=== PATIENT | male | born 1995 | race Caucasian/White ===

== ENCOUNTER → 2018-12-17 | Outpatient (CLI) | payer OTHER, SELFPAY ==
[2018-12-17 14:58] VITALS: BMI 21.4
[2018-12-17 17:50] LABS: Hemoglobin 14.8 g/dl (13.0-16.5); Mean Corp Hgb Conc 34.4 g/gl (32-36); Mean Platelet Vol. 9.9 fl (6.2-12.0); Platelet Count 250 K/mm3 (150-450); RBC Distribution Width CV 13.1 % (11.6-14.6); RBC Distribution Width SD 40.8 fl (35.1-43.9); Red Blood Count 4.94 M/mm3 (4.6-6.2); White Blood Count 5.9 K/mm3 (4.4-11.0)
[2018-12-17 17:58] LABS: Scan Indicated on CBC? Y/N NO
[2018-12-25 10:00] LABS: Calprotectin, Stool <16 ug/g (0-120)
== END | disposition home or self-care (01) ==
PROVIDERS: Family Provider Family Medicine; PCP Family Medicine; Referring Provider Family Medicine; Visit Provider Family Medicine
DX: K62.5 Hemorrhage of anus and rectum (principal)
CPT/HCPCS: 36415; 83993; 85027

== ENCOUNTER 2023-06-16 09:32 | Emergency (ER) | payer OTHER, SELFPAY ==
[2023-06-16 09:32] VITALS: BP 146/81; PULSE 62; RESP 16; TEMP 36.3; O2SAT 99; BMI 22.2
--- NOTE | 2023-06-16 10:09 | EX.ED.VIS.UR ---
HPI HPI - URI History of Present Illness Chief Complaint: Sore Throat Informant: patient Onset/Context/Timing Onset: Yesterday (Last night) Context: Sudden Onset Timing: Continuous Quality: Aching Location: Throat Worsened by: Swallowing Relieved by: - (Nothing) Associated Symptoms Associated Symptoms: Positive for Nasal Congestion and Nonproductive cough; Negative for Headache, Sinus Pressure, Myalgias, Nausea, Vomiting, Diarrhea, Shortness of Breath, Chest Pain, Hemoptysis or Productive Cough Narrative Narrative: Patient presents with sore throat that began last night. Patient states it began rather suddenly. Patient states it has been constant. Patient states he is having difficulty swallowing due to the pain. Patient denies any trouble breathing. Patient admits to some nasal congestion. Patient admits to a nonproductive cough. Patient admits to some subjective fevers. Patient denies any nausea or vomiting. Patient denies any chest pain or shortness of breath. Patient denies any headaches or sinus pressure. ROS ROS ED Constitutional Constitutional ED: Reports fever(s) and subjective; Denies chills Eyes Eyes: Denies blurry vision or change in vision ENT ENT ED: Reports sore throat; Denies rhinorrhea Cardiovascular Cardiovascular: Denies chest pain or palpitations Respiratory/Chest Respiratory/Chest: Reports cough; Denies dyspnea Gastrointestinal Gastrointestinal: Denies nausea or vomiting Genitourinary Genitourinary ED: Denies dysuria or hematuria Musculoskeletal Musculoskeletal: Denies back pain or neck pain Integumentary Denies abscess or rash Neurologic Neurologic: Denies headache(s) or weakness Allergic/Immunologic Allergic/Immunologic ED: Denies mouth swelling or urticaria PFSH PFSH Medical History Encounter for screening for COVID-19 Frequent headaches Rectal bleeding Home Medications NK 05/27/19 [History Last Taken Unknown] Allergy/AdvReac Type Severity Reaction Status Date / Time No Known Allergies Allergy Verified 06/16/23 09:32 Family History (Updated 05/27/19 @ 09:12 by Miriam Pierce) Grandfather Arthritis Bone Marrow cancer Skin cancer Grandmother Arthritis Colon cancer Diabetes Hypertension Osteoporosis Grandfather Colon cancer Diabetes CVA (cerebral vascular accident) Grandmother Hypertension Father High cholesterol Mother Hypertension Surgical History History of removal of Birthmark Hx of wisdom tooth extraction Social History Smoking Status: Never smoker alcohol intake: never substance use type: does not use caffeine: Yes what type of physical activity do you participate in: none EXAM Physical Exam Const Vital Signs: 06/16/23 09:32 06/16/23 10:48 Temperature 97.4 F L Temperature Source Temporal Pulse Rate 62 Respiratory Rate 16 16 Blood Pressure 146/81 H Blood Pressure Mean 102 Pulse Ox 99 Oxygen Delivery Method Room Air Positive well nourished and well developed General Appearance ED: well developed and NAD HEENT Reports moist mucous membranes normocephalic Throat: posterior oropharynx normal Neck supple, no meningeal signs and no JVD Neck Narrative: There is some mild pain with manipulation of the trachea. General: Negative for anterior neck swelling Resp normal respiratory effort and clear to auscultation bilaterally Cardio Rate: regular rate Rhythm: regular rhythm GI non-tender and non-distended Palpation: soft Neuro oriented x3, CN's II-XII intact bilaterally and no sensory deficits noted Sensorium / Orientation: alert Motor Exam: strength 5/5 throughout Psych mental status grossly normal MDM MDM MDM Narrative Medical decision making narrative: Differential diagnosis includes epiglottitis, retropharyngeal abscess, and viral pharyngitis. CT scan of the soft tissue neck will be obtained to assess for retropharyngeal abscess and epiglottitis. CBC will be obtained to assess for leukocytosis and anemia. Basic metabolic profile will be obtained to assess for electrolyte abnormality and renal function. COVID-19 rapid antigen will be obtained to assess for COVID-19 infection. Influenza A and influenza B antigens will be obtained to assess for influenza infection. Lab Data Attestation: I reviewed the patient's lab results. Lab results narrative: CBC was reviewed and was within normal limits. Basic metabolic profile was reviewed and was within normal limits. COVID-19 rapid antigen was reviewed and was negative. Influenza A and influenza B rapid antigens were reviewed and were negative. Labs: Laboratory Results - last 24 hr 06/16/23 10:50 WBC 4.4 RBC 4.89 Hgb 14.5 Hct 43.3 MCV 88.5 MCH 29.7 MCHC 33.5 RDW Std Deviation 40.5 RDW Coeff of Asim 12.4 Plt Count 213 MPV 8.9 Immature Gran % (Auto) 0.000 Neut % (Auto) 34.9 L Lymph % (Auto) 55.9 H Baker % (Auto) 9.0 Eos % (Auto) 0.0 Baso % (Auto) 0.2 Absolute Neuts (auto) 1.5 L Absolute Lymphs (auto) 2.43 Nucleated RBC % 0 Differential Comment SCANNED Reactive Lymphocytes 1+ Sodium 138 Potassium 4.5 Chloride 106 Carbon Dioxide 31.0 Anion Gap 1 L BUN 8 Creatinine 0.72 Estim Creat Clear Calc 140.40 Est GFR (MDRD) Af Amer 167 Est GFR (MDRD) Non-Af 138 BUN/Creatinine Ratio 11.0 Glucose 96 Calcium 8.9 Radiography Diagnostic Testing: Clinical Impression(s) from Imaging Studies Soft Tissue Neck CT 06/16/23 10:36 IMPRESSION: Negative CT Neck with contrast. Electronically Signed: Leonard Marino MD at 12:07 EST , CT scan of the soft tissue neck was obtained. There is no evidence of any abscess or epiglottitis. There is no acute abnormality noted. This was interpreted by the radiologist and was also independently reviewed by myself. Treatment and Re-Evaluation Narrative: Patient was given IV fluids. Patient was advised of his findings. Patient was instructed to drink plenty of fluids. Patient was instructed to advance his diet as tolerated. Patient was instructed to take Tylenol or ibuprofen as needed for any pain. Patient was instructed to follow-up with his primary care physician in 5 to 7 days. Patient understood and was agreeable with the plan. All questions were answered. Discharge Plan Triage Chief Complaint: Sore Throat ED Provider: Pako Mcgraw Dx/Rx/DC Orders Clinical Impression: Viral upper respiratory infection, Pharyngitis Instructions: ED Pharyngitis, Viral Prescriptions: No Action NK Primary Care Provider: Donald Celeste Referrals: oDnald Celeste DO [Primary Care Provider] - 5-7 Days Disposition Disposition: Home, Self Care
--- NOTE | 2023-06-16 10:36 | CT_ITS ---
INDICATION: Dysphagia EXAMINATION: CT NECK WITH CONTRAST - CT Soft Tissue Neck W/ Contrast Injection TECHNIQUE: Helically acquired images were obtained of the neck following IV contrast. A radiation dose optimization technique was used for this scan. RADIATION DOSAGE (If Supplied By Facility): CTDIvol = ( 12.50 ) mGy, DLP = ( 362.13 ) mGycm IV Contrast dosage and agent: 75 mL of [id number]-[id number]. COMPARISON: None. FINDINGS: NASOPHARYNX: Unremarkable. SUPRAHYOID NECK: Unremarkable oropharynx, oral cavity, parapharyngeal space, and retropharyngeal space. INFRAHYOID NECK: Unremarkable larynx, hypopharynx, and supraglottis. THYROID: No focal lesions. SALIVARY GLANDS: Unremarkable. LYMPH NODES: No cervical or supraclavicular lymphadenopathy. VASCULAR STRUCTURES: Unremarkable. VISUALIZED PORTIONS OF THE ORBITS, PARANASAL SINUSES, MASTOID AIR CELLS AND SKULL BASE: Mild mucosal thickening in the maxillary sinuses. Normal remaining paranasal sinuses. No suspicious abnormality orbits. Normal mastoid air cells and skull base. BONES: Unremarkable. THORACIC INLET: Clear lung apices. CT/Soft Tissue Neck WITH Contrast IMPRESSION: Negative CT Neck with contrast. Electronically Signed: Leonard Marino MD at 12:07 [facility] ,
[2023-06-16 10:48] VITALS: RESP 16
[2023-06-16] MEDS: 0.9% Normal Saline (1000mL) 1,000 ML 1000 ML IV (10:52)
[2023-06-16 11:03] LABS: Absolute Lymphocyte Count 2.43 X10^3/uL (0.83-4.51); Absolute Neutrophil Count 1.5 X10^3/uL (2.0-7.7); Basophil# 0.01 X10^3/uL; Basophil% 0.2 % (0-1); Hematocrit 43.3 % (40-54); Hemoglobin 14.5 g/dL (13.0-16.5); Lymphocyte # 2.43 X10^3/ul (0.83-4.51); Lymphocyte % 55.9 % (19-41); Mean Corp Hgb Conc 33.5 g/dL (32-36); Mean Corpuscular Hgb 29.7 pg (27.0-32.0); Mean Corpuscular Volume 88.5 fL (80-94); Mean Platelet Vol. 8.9 fl (6.2-12.0); Monocyte# 0.39 X10^3/uL; NRBC Flagged by Analyzer 0 % (0-5); Neutrophil # 1.52 X10^3/uL (2.7-7.7); Neutrophil % 34.9 % (47-70); POSITIVE MORPHOLOGY YES; Platelet Count 213 K/mm3 (150-450); RBC Distribution Width CV 12.4 % (11.6-14.6); RBC Distribution Width SD 40.5 fl (35.1-43.9); Red Blood Count 4.89 M/mm3 (4.6-6.2); White Blood Count 4.4 K/mm3 (4.4-11.0)
[2023-06-16 11:05] LABS: Differential Indicated SCAN CRITERIA MET
[2023-06-16 11:14] LABS: Anion Gap 1 (5-15); BUN 8 mg/dL (7-18); Calcium,Total 8.9 mg/dL (8.5-10.1); Chloride 106 mmol/L (98-107); Creatinine, Serum 0.72 mg/dL (0.70-1.30); EST Glomerular Filtration Rate 138 mL/min (>60); Est Glom Filt Rate - Afr Amer 167 mL/min (>60); Glucose 96 mg/dL (74-106); Potassium 4.5 mmol/L (3.5-5.1); Sodium Level 138 mmol/L (136-145)
[2023-06-16 11:23] LABS: Differential Comment SCANNED; Reactive Lymphocyte 1+
== END 2023-06-16 13:11 | disposition home or self-care (01) ==
PROVIDERS: Emergency Provider Emergency Medicine; PCP Family Medicine; Visit Provider Emergency Medicine
DX: J02.9 Acute pharyngitis, unspecified (principal)
CPT/HCPCS: 70491; 80048; 85025; 87428; 96360; 99283; J7030; Q9967